=== PATIENT | male | born 1945 | race Caucasian/White ===

== ENCOUNTER 2017-03-01 09:55 | Inpatient (IN) | payer MEDICARE ==
[~2017-03-01] VITALS: Ht 182.9 cm; Wt 69.1 kg
[~2017-03-01 09:55] MED LIST: CLIN300C93 PO; IBUP-1222 PO; IBUP800T PO; METO25TA35 PO; MORP15TA3 PO; OXYC5TAB3 PO
[2017-03-01] MEDS ORDERED: FAMO-79 PO (10:49)
[2017-03-01] MEDS ORDERED: SULF1TAB24 PO (10:49)
[2017-03-01] MEDS ORDERED: PRED5TAB25 PO (10:49)
[2017-03-01] MEDS ORDERED: CEPH-367 PO (10:49)
[2017-03-01] MEDS ORDERED: DIPHENHYDRAMINE 50 MG/ML, 1ML ONE (11:20)
[2017-03-01] MEDS ORDERED: DIPHENHYDRAMINE 50 MG/ML, 1ML IVPush ONE (11:30)
[2017-03-01 11:40] LABS: BLOOD UREA NITROGEN 31 mg/dL (7-18)
[2017-03-01] MEDS ORDERED: methylPREDNISolone SOD SUCC 40 MG/ML ONE (12:21)
[2017-03-01] MEDS ORDERED: methylPREDNISolone SOD SUCC 40 MG/ML IV ONE (12:30)
[2017-03-01] MEDS ORDERED: SODIUM CHLORIDE 0.9% 1,000 ML IV SCH (12:54)
[2017-03-01] MEDS ORDERED: POLYETHYLENE GLYCOL 17 GM PACKET PO PRN (13:00)
[2017-03-01] MEDS ORDERED: ONDANSETRON 2MG/ML, 2ML IVPush PRN (13:00)
[2017-03-01] MEDS ORDERED: VANCOMYCIN PER PHARMACY MC PRN ×2 (13:00→14:00)
[2017-03-01] MEDS ORDERED: DOCUSATE 100 MG CAPSULE PO PRN (13:00)
[2017-03-01] MEDS ORDERED: ACETAMINOPHEN 325 MG TABLET PO PRN (13:00)
[2017-03-01] MEDS ORDERED: PHARMACOKINETIC MONITORING MC PRN (13:30)
[2017-03-01] MEDS ORDERED: PHARMACOKINETIC CONSULTATION MC ONE (13:30)
[2017-03-01] MEDS ORDERED: GADOBUTROL 7.5 MMOL/7.5 ML PFS ONE (14:15)
[2017-03-01] MEDS: NICOTINE 14MG/24 HR PATCH.TD24 TD SCH (15:32)
[2017-03-01] MEDS: VANCOMYCIN 1,500 MG in SODIUM CHLORIDE 0.9% 250 ML IV SCH (15:32)
[2017-03-01] MEDS: CETIRIZINE 10 MG TABLET PO SCH ×2 (16:33→21:14)
[2017-03-01 18:14] VITALS: BP 149/74
[2017-03-01] MEDS: METOPROLOL TARTRATE 25 MG TABLET PO SCH (18:17)
[2017-03-01 19:28] VITALS: BP 148/81
[2017-03-01] MEDS: FAMOTIDINE 20 MG TABLET PO SCH (21:10)
[2017-03-01] MEDS: DIPHENHYDRAMINE 25 MG CAPSULE PO PRN (21:14)
[2017-03-02 03:01] VITALS: BP 148/68
[2017-03-02 05:34] LABS: BLOOD UREA NITROGEN 26 mg/dL (7-18)
[2017-03-02] MEDS: METOPROLOL TARTRATE 25 MG TABLET PO SCH ×2 (06:20→19:13)
[2017-03-02 06:55] VITALS: BP 128/70
[2017-03-02] MEDS: VANCOMYCIN 1,500 MG in SODIUM CHLORIDE 0.9% 250 ML IV SCH (09:37)
[2017-03-02] MEDS: FAMOTIDINE 20 MG TABLET PO SCH ×2 (09:38→21:04)
[2017-03-02] MEDS: SENNA/DOCUSATE TABLET PO SCH (09:38)
[2017-03-02] MEDS: CETIRIZINE 10 MG TABLET PO SCH ×2 (09:38→21:04)
[2017-03-02] MEDS: HYDROcodone/APAP 5/325 TABLET PO PRN ×2 (10:55→19:15)
[2017-03-02 13:35] VITALS: BP 124/66
[2017-03-02] MEDS: NICOTINE 14MG/24 HR PATCH.TD24 TD SCH (16:21)
[2017-03-02 18:57] VITALS: BP 159/76
[2017-03-03 02:00] VITALS: BP 130/73
[2017-03-03] MEDS: VANCOMYCIN 1,500 MG in SODIUM CHLORIDE 0.9% 250 ML IV SCH ×2 (02:59→22:42)
[2017-03-03] MEDS: DIPHENHYDRAMINE 25 MG CAPSULE PO PRN ×2 (04:03→13:21)
[2017-03-03] MEDS: METOPROLOL TARTRATE 25 MG TABLET PO SCH ×2 (06:12→18:02)
[2017-03-03 07:08] VITALS: BP 107/59
[2017-03-03] MEDS: SENNA/DOCUSATE TABLET PO SCH (09:00)
[2017-03-03] MEDS: CETIRIZINE 10 MG TABLET PO SCH ×2 (09:18→22:42)
[2017-03-03] MEDS: FAMOTIDINE 20 MG TABLET PO SCH ×2 (09:18→22:42)
[2017-03-03 12:44] VITALS: BP 117/64
[2017-03-03] MEDS: NICOTINE 14MG/24 HR PATCH.TD24 TD SCH (13:00)
[2017-03-03] MEDS: METRONIDAZOLE PMX 500MG/100ML 100 ML IV SCH ×2 (13:21→21:11)
[2017-03-03 19:22] VITALS: BP 110/54
[2017-03-04 04:34] VITALS: BP 115/68
[2017-03-04] MEDS: METOPROLOL TARTRATE 25 MG TABLET PO SCH ×2 (05:12→20:20)
[2017-03-04] MEDS: METRONIDAZOLE PMX 500MG/100ML 100 ML IV SCH ×3 (05:12→22:19)
[2017-03-04 05:55] LABS: BLOOD UREA NITROGEN 26 mg/dL (7-18)
[2017-03-04 07:45] VITALS: BP 125/69
[2017-03-04] MEDS ORDERED: NS + 20MEQ KCL 1,000 ML IV SCH (08:30)
[2017-03-04] MEDS: FAMOTIDINE 20 MG TABLET PO SCH ×2 (08:56→20:20)
[2017-03-04] MEDS: SENNA/DOCUSATE TABLET PO SCH (08:57)
[2017-03-04] MEDS: CETIRIZINE 10 MG TABLET PO SCH ×2 (08:57→20:20)
[2017-03-04] MEDS: NICOTINE 14MG/24 HR PATCH.TD24 TD SCH (13:00)
[2017-03-04] MEDS ORDERED: LIDOCAINE 2%, 20ML ONE (14:50)
[2017-03-04] MEDS ORDERED: PROTAMINE SULFATE 10 MG/ML, 25ML ONE (14:53)
[2017-03-04] MEDS ORDERED: FENTANYL PF 100 MCG/2ML ONE (14:54)
[2017-03-04] MEDS ORDERED: MIDAZOLAM 1 MG/ML, 5ML ONE (14:54)
[2017-03-04] MEDS ORDERED: FLUMAZENIL 0.1 MG/1 ML, 5ML ONE (14:54)
[2017-03-04] MEDS ORDERED: HEPARIN 1,000 UNITS/ML, 10ML ONE (14:54)
[2017-03-04] MEDS ORDERED: NALOXONE 1 MG/ML, 2ML ONE (14:54)
[2017-03-04] MEDS ORDERED: NITROGLYCERIN 5 MG/ML, 10ML ONE (14:54)
[2017-03-04] MEDS ORDERED: CLOPIDOGREL 300 MG TABLET ONE (16:52)
[2017-03-04] MEDS: SODIUM CHLORIDE 0.9% 1,000 ML IV SCH (19:13)
[2017-03-04 20:00] VITALS: BP 147/81
[2017-03-04] MEDS: VANCOMYCIN 1,500 MG in SODIUM CHLORIDE 0.9% 250 ML IV SCH (20:20)
[2017-03-05 00:44] VITALS: BP 131/63
[2017-03-05 05:40] LABS: BLOOD UREA NITROGEN 24 mg/dL (7-18)
[2017-03-05] MEDS: METOPROLOL TARTRATE 25 MG TABLET PO SCH ×2 (06:15→18:41)
[2017-03-05] MEDS: METRONIDAZOLE PMX 500MG/100ML 100 ML IV SCH ×3 (06:15→23:14)
[2017-03-05 08:00] VITALS: BP 128/67
[2017-03-05] MEDS: CLOPIDOGREL 75 MG TABLET PO SCH (09:44)
[2017-03-05] MEDS: FAMOTIDINE 20 MG TABLET PO SCH ×2 (09:44→23:14)
[2017-03-05] MEDS: CETIRIZINE 10 MG TABLET PO SCH ×2 (09:44→21:00)
[2017-03-05] MEDS: SENNA/DOCUSATE TABLET PO SCH (09:44)
[2017-03-05] MEDS: SODIUM CHLORIDE 0.9% 1,000 ML IV SCH ×2 (09:46→20:00)
[2017-03-05 13:04] VITALS: BP 138/58
[2017-03-05] MEDS: NICOTINE 14MG/24 HR PATCH.TD24 TD SCH (13:11)
[2017-03-05] MEDS: morphine SULFATE 10 MG/ML, 1ML IVPush PRN (14:02)
[2017-03-05] MEDS: VANCOMYCIN 1,500 MG in SODIUM CHLORIDE 0.9% 250 ML IV SCH (15:24)
[2017-03-05] MEDS: TAMSULOSIN 0.4 MG CAP.ER.24H PO SCH (15:24)
[2017-03-05 18:43] VITALS: BP 132/67
[2017-03-05] MEDS: FINASTERIDE 5 MG TABLET PO SCH (23:14)
[2017-03-06 05:41] VITALS: BP 137/71
[2017-03-06] MEDS: SODIUM CHLORIDE 0.9% 1,000 ML IV SCH ×2 (06:08→17:46)
[2017-03-06] MEDS: METOPROLOL TARTRATE 25 MG TABLET PO SCH ×2 (06:08→17:45)
[2017-03-06 06:12] LABS: BLOOD UREA NITROGEN 16 mg/dL (7-18)
[2017-03-06] MEDS: FAMOTIDINE 20 MG TABLET PO SCH ×2 (08:37→21:35)
[2017-03-06] MEDS: CLOPIDOGREL 75 MG TABLET PO SCH (08:37)
[2017-03-06] MEDS: METRONIDAZOLE PMX 500MG/100ML 100 ML IV SCH ×2 (08:37→17:46)
[2017-03-06] MEDS: TAMSULOSIN 0.4 MG CAP.ER.24H PO SCH (08:37)
[2017-03-06] MEDS: FINASTERIDE 5 MG TABLET PO SCH (08:37)
[2017-03-06] MEDS: CETIRIZINE 10 MG TABLET PO SCH (08:37)
[2017-03-06] MEDS: SENNA/DOCUSATE TABLET PO SCH (08:38)
[2017-03-06] MEDS: VANCOMYCIN 1,500 MG in SODIUM CHLORIDE 0.9% 250 ML IV SCH (11:11)
[2017-03-06] MEDS: NICOTINE 14MG/24 HR PATCH.TD24 TD SCH (13:00)
[2017-03-06] MEDS ORDERED: LINE600T37 PO (13:38)
[2017-03-06] MEDS ORDERED: FINA5TAB4 PO (13:38)
[2017-03-06] MEDS ORDERED: METR500T PO (13:38)
[2017-03-06] MEDS ORDERED: TAMS-11 PO (13:38)
[2017-03-06] MEDS ORDERED: CLOP75TA PO (13:38)
[2017-03-06] MEDS ORDERED: TRAM50TA2 PO (13:40)
[2017-03-06] MEDS: morphine SULFATE 10 MG/ML, 1ML IVPush PRN (14:23)
[2017-03-06 17:43] VITALS: BP 136/66
[2017-03-06 21:30] VITALS: BP 159/85
[2017-03-07] MEDS: METRONIDAZOLE PMX 500MG/100ML 100 ML IV SCH ×2 (00:37→08:05)
[2017-03-07 01:25] VITALS: BP 143/75
[2017-03-07] MEDS: VANCOMYCIN 1,500 MG in SODIUM CHLORIDE 0.9% 250 ML IV SCH (04:22)
[2017-03-07] MEDS: METOPROLOL TARTRATE 25 MG TABLET PO SCH (06:11)
[2017-03-07] MEDS: FINASTERIDE 5 MG TABLET PO SCH (08:04)
[2017-03-07] MEDS: CETIRIZINE 10 MG TABLET PO SCH (08:04)
[2017-03-07] MEDS: CLOPIDOGREL 75 MG TABLET PO SCH (08:04)
[2017-03-07] MEDS: FAMOTIDINE 20 MG TABLET PO SCH (08:04)
[2017-03-07] MEDS: TAMSULOSIN 0.4 MG CAP.ER.24H PO SCH (08:04)
[2017-03-07] MEDS: SENNA/DOCUSATE TABLET PO SCH (08:04)
[2017-03-07 08:13] VITALS: BP 146/77
[2017-03-07] MEDS ORDERED: SODIUM CHLORIDE NASAL SPRAY 45ML BOTTLE NAS PRN (09:00)
[2017-03-07] MEDS: SODIUM CHLORIDE 0.9% 1,000 ML IV SCH (10:00)
[2017-03-07] MEDS: NICOTINE 14MG/24 HR PATCH.TD24 TD SCH (11:33)
[2017-03-07] MEDS ORDERED: DOXY100T PO (11:44)
[2017-03-07] MEDS ORDERED: DOXYCYCLINE 100MG TABLET PO ONE (12:00)
== END 2017-03-07 14:26 | disposition home or self-care (01) | DRG 253 ==
LOC: ED 11:56 → SUATTDRO 12:37 → EDIP 12:54 → 3NE 14:33
PROVIDERS: ADMIT Family Medicine; ATTEND Family Medicine
PROC: B41GYZZ Fluoroscopy of Left Lower Extremity Arteries using Other Contrast (ICD-10-PCS; principal; 2017-03-01)
PROC: 047J3DZ Dilation of Left External Iliac Artery with Intraluminal Device, Percutaneous Approach (ICD-10-PCS; 2017-03-01)
PROC: 047U3ZZ Dilation of Left Peroneal Artery, Percutaneous Approach (ICD-10-PCS; 2017-03-01)
PROC: B41FYZZ Fluoroscopy of Right Lower Extremity Arteries using Other Contrast (ICD-10-PCS; 2017-03-01)
DX: I70.243 Atherosclerosis of native arteries of left leg with ulceration of ankle (principal); E44.0 Moderate protein-calorie malnutrition; L97.329 Non-pressure chronic ulcer of left ankle with unspecified severity; L27.0 Generalized skin eruption due to drugs and medicaments taken internally; S91.002A Unspecified open wound, left ankle, initial encounter; D47.3 Essential (hemorrhagic) thrombocythemia; D64.9 Anemia, unspecified; Z16.24 Resistance to multiple antibiotics; T36.95XA Adverse effect of unspecified systemic antibiotic, initial encounter; Y92.89 Other specified places as the place of occurrence of the external cause; F17.200 Nicotine dependence, unspecified, uncomplicated; I10 Essential (primary) hypertension; R33.9 Retention of urine, unspecified; Z82.3 Family history of stroke; Z88.2 Allergy status to sulfonamides; Z88.1 Allergy status to other antibiotic agents; Z86.14 Personal history of Methicillin resistant Staphylococcus aureus infection; Z68.20 Body mass index [BMI] 20.0-20.9, adult
CPT/HCPCS: 36415; 37221; 37228; 71020; 75625; 75630; 75716; 80048; 80202; 81001; 81003; 82040; 85025; 85651; 86141; 87040; 87070; 87086; 87106; 87205; 93005; 93922; 93925; 96374; 96375; 99156; 99157; A9585; C1725; J1644; J2250; J2720; J3010; J3370; J3480; J3490; C1751; C1769; C1876; C1894; J1200; J2270; J2310; J2920; J7030; J7050; Q0163

== ENCOUNTER 2017-05-04 11:36 | Emergency (ER) | payer MEDICARE ==
[~2017-05-04] VITALS: Ht 182.9 cm; Wt 66.8 kg
[~2017-05-04 11:36] MED LIST changes: +CEPH-367 PO; +CLIN300C8 PO; -CLIN300C93 PO; +CLOP75TA PO; +DOXY100T PO; +FAMO-79 PO; +FINA5TAB4 PO; +IBUP-1223 PO; -IBUP800T PO; +LINE600T37 PO; +METR500T PO; +PRED5TAB25 PO; +SULF1TAB24 PO; +TAMS-11 PO; +TRAM50TA2 PO
[2017-05-04] MEDS ORDERED: HYDROcodone/APAP 5/325 TABLET ONE (14:25)
[2017-05-04] MEDS ORDERED: HYDROcodone/APAP 5/325 TABLET PO ONE (14:30)
[2017-05-04] MEDS ORDERED: LIDOCAINE GEL 2%, 5ML ONE ×2 (15:18→16:02)
[2017-05-04] MEDS ORDERED: ONDANSETRON ODT 4 MG PO ONE (16:30)
[2017-05-04] MEDS ORDERED: HYDROmorphone 1 MG/ML, 1ML IM ONE (16:30)
[2017-05-04] MEDS ORDERED: ONDANSETRON ODT 4 MG ONE (16:31)
[2017-05-04] MEDS ORDERED: HYDROmorphone 1 MG/ML, 1ML ONE (16:31)
[2017-05-04] MEDS ORDERED: FENTANYL PF 100 MCG/2ML ONE (17:17)
[2017-05-04] MEDS ORDERED: LORazepam 2 MG/ML, 1ML ONE (17:18)
[2017-05-04] MEDS ORDERED: HYDROmorphone 1 MG/ML, 1ML IV ONE (17:30)
[2017-05-04] MEDS ORDERED: LORazepam 2 MG/ML, 1ML IVPush ONE ×2 (17:30→18:00)
[2017-05-04] MEDS ORDERED: FENTANYL PF 100 MCG/2ML IVPush ONE (17:41)
[2017-05-04 18:27] VITALS: BP 148/67
== END 2017-05-04 18:59 | disposition home or self-care (01) ==
LOC: ED 13:07
DX: N30.01 Acute cystitis with hematuria (principal); R33.9 Retention of urine, unspecified; N40.0 Benign prostatic hyperplasia without lower urinary tract symptoms; I10 Essential (primary) hypertension; F17.210 Nicotine dependence, cigarettes, uncomplicated
CPT/HCPCS: 51702; 81001; 87077; 87086; 96374; 96375; 99284; J2060; J3010; 87186

== ENCOUNTER 2017-05-19 15:31 | Emergency (ER) | payer SELFPAY ==
[~2017-05-19] VITALS: Ht 182.9 cm; Wt 69.4 kg
[2017-05-19] MEDS ORDERED: PHENAZOPYRIDINE 200 MG TABLET PO ONE (17:00)
[2017-05-19] MEDS ORDERED: PHENAZOPYRIDINE 200 MG TABLET ONE (17:27)
[2017-05-19] MEDS ORDERED: OPIUM/BELLADONNA SUPP.RECT 16.2-60 MG PR ONE (17:59)
[2017-05-19] MEDS ORDERED: HYDROmorphone 1 MG/ML, 1ML ONE ×2 (18:23→20:48)
[2017-05-19] MEDS ORDERED: ONDANSETRON ODT 4 MG ONE (18:28)
[2017-05-19] MEDS ORDERED: HYDROmorphone 1 MG/ML, 1ML IM ONE (18:30)
[2017-05-19] MEDS ORDERED: ONDANSETRON ODT 4 MG PO ONE (19:00)
[2017-05-19] MEDS ORDERED: ONDANSETRON 2MG/ML, 2ML ONE (20:48)
[2017-05-19] MEDS ORDERED: SODIUM CHLORIDE 0.9% 1,000ML IVBOLUS ONE (21:00)
[2017-05-19] MEDS ORDERED: ONDANSETRON 2MG/ML, 2ML IVPush ONE (21:00)
[2017-05-19] MEDS ORDERED: SODIUM CHLORIDE FLUSH 10ML SYR IVF ONE (21:00)
[2017-05-19] MEDS ORDERED: HYDROmorphone 1 MG/ML, 1ML IVPush PRN (21:00)
[2017-05-19] MEDS ORDERED: CEFDINIR 300 MG CAPSULE PO SCH (21:00)
[2017-05-19 21:24] LABS: BLOOD UREA NITROGEN 32 mg/dL (7-18)
[2017-05-19 21:25] LABS: HEMATOCRIT 48.1 % (39.2-51.8); HEMOGLOBIN 16.3 g/dL (13.7-18.0); WHITE BLOOD COUNT 28.4 x10^3/uL (3.4-10)
[2017-05-19] MEDS ORDERED: FLUMAZENIL 0.1 MG/1 ML, 5ML ONE (21:40)
[2017-05-19] MEDS ORDERED: MIDAZOLAM 1 MG/ML, 5ML ONE (21:40)
[2017-05-19] MEDS ORDERED: FENTANYL PF 100 MCG/2ML ONE (21:40)
[2017-05-19] MEDS ORDERED: NALOXONE 1 MG/ML, 2ML ONE (21:40)
[2017-05-19] MEDS ORDERED: LIDOCAINE 1%, 20ML ONE (21:42)
[2017-05-19] MEDS ORDERED: VISIPAQUE 270 MG/ML, 50ML BOTTLE ONE (22:01)
[2017-05-20 03:09] VITALS: BP 120/70
== END 2017-05-20 03:10 | disposition home or self-care (01) ==
LOC: ED 21:16
DX: N30.90 Cystitis, unspecified without hematuria (principal); I10 Essential (primary) hypertension
CPT/HCPCS: 36415; 51703; 75989; 76937; 80048; 81001; 82040; 83605; 85025; 87040; 87077; 87086; 87186; 96361; 96372; 96374; 96375; 99156; 99157; 99285; C1725; C1769; J1170; J2250; J2405; J3010; J3490; J7030; Q0162; Q9966; 51701; J2310; P9612

== ENCOUNTER 2017-06-04 02:02 | Emergency (ER) | payer SELFPAY ==
[~2017-06-04] VITALS: Ht 182.9 cm; Wt 68.3 kg
[2017-06-04] MEDS ORDERED: HYDROmorphone 1 MG/ML, 1ML ONE (02:44)
[2017-06-04] MEDS ORDERED: HYDROmorphone 1 MG/ML, 1ML IM ONE (03:00)
[2017-06-04 05:11] VITALS: BP 128/72
== END 2017-06-04 05:20 | disposition home or self-care (01) ==
LOC: ED 05:11
DX: N30.91 Cystitis, unspecified with hematuria (principal); I10 Essential (primary) hypertension; F17.200 Nicotine dependence, unspecified, uncomplicated; I49.1 Atrial premature depolarization
CPT/HCPCS: 81001; 87077; 87086; 87106; 87186; 93005; 96372; 99285; J1170

== ENCOUNTER 2017-06-16 03:29 | Emergency (ER) | payer SELFPAY ==
[~2017-06-16] VITALS: Ht 182.9 cm; Wt 67.9 kg
[2017-06-16 03:31] VITALS: BP 162/109
== END 2017-06-16 05:05 | disposition home or self-care (01) ==
LOC: ED 04:01
DX: T83.091A Other mechanical complication of indwelling urethral catheter, initial encounter (principal); N30.90 Cystitis, unspecified without hematuria; F17.200 Nicotine dependence, unspecified, uncomplicated; I10 Essential (primary) hypertension; X58.XXXA Exposure to other specified factors, initial encounter; Y93.89 Activity, other specified; Y92.89 Other specified places as the place of occurrence of the external cause; Y99.8 Other external cause status
CPT/HCPCS: 51702; 81001; 87077; 87086; 87106; 87186

== ENCOUNTER → 2017-08-13 | Outpatient (CLI) | payer MEDICARE, MEDICAID ==
[~2017-08-13] MED LIST changes: +Garlic; +Green Tea; +HAWTHORN BERRIES; +LEVO50TA5 PO; +MULT-224 PO; +Magnesium; +Resveratrol; +TAMS0.4C2 PO; +Turmeric; +Vitamin B12; +Vitamin C; +Vitamin E; +fish oil
[2017-08-13 12:46] LABS: ASPARTATE AMINO TRANSFERASE 20 U/L (15-37); BLOOD UREA NITROGEN 26 mg/dL (7-18)
== END | disposition home or self-care (01) ==
LOC: STAR 11:24
PROVIDERS: ATTEND Urology
DX: Z01.818 Encounter for other preprocedural examination (principal); R33.9 Retention of urine, unspecified; R94.31 Abnormal electrocardiogram [ECG] [EKG]
CPT/HCPCS: 36415; 80053; 93005

== ENCOUNTER → 2017-08-19 | Outpatient (CLI) | payer MEDICARE, MEDICAID ==
[~2017-08-19] MED LIST changes: +REGADENOSON 0.4 MG/5 ML SYRINGE ONE
== END | disposition home or self-care (01) ==
LOC: CFH 10:40
PROVIDERS: ATTEND Internal Medicine Cardiovascular Disease
DX: Z01.818 Encounter for other preprocedural examination (principal); I51.7 Cardiomegaly; I70.25 Atherosclerosis of native arteries of other extremities with ulceration; E78.5 Hyperlipidemia, unspecified; Z72.0 Tobacco use
CPT/HCPCS: 78452; 93017; 93306; A9502; J2785

== ENCOUNTER 2017-11-11 18:15 | Emergency (ER) | payer MEDICARE, MEDICAID ==
[~2017-11-11] VITALS: Ht 182.9 cm; Wt 72.0 kg
[~2017-11-11 18:15] MED LIST changes: -REGADENOSON 0.4 MG/5 ML SYRINGE ONE
[2017-11-11 18:17] VITALS: BP 150/81
[2017-11-11] MEDS ORDERED: VISIPAQUE 270 MG/ML, 50ML BOTTLE ONE (20:00)
[2017-11-11] MEDS ORDERED: LIDOCAINE 1%, 20ML ONE (20:23)
[2017-11-11 21:31] LABS: MICROSCOPIC AUTO
[2017-11-11 21:35] LABS: CULTURE INDICATED? YES
== END 2017-11-11 22:07 | disposition home or self-care (01) ==
LOC: ED 21:31
DX: N30.91 Cystitis, unspecified with hematuria (principal)
CPT/HCPCS: 51102; 51702; 76000; 81001; 87077; 87086; 87186; 99285; C1725; C1769; J3490; Q9966

== ENCOUNTER → 2017-12-15 | Outpatient (CLI) | payer MEDICARE, MEDICAID ==
[~2017-12-15] MED LIST changes: +ATOR20TA9 PO; +CARV3.1212 PO; +ERGO500017 PO; +LISI2.5T PO
[2017-12-15 13:45] LABS: ALBUMIN 3.7 g/dL (3.4-5.0); ANION GAP 8 mmol/L (5-15); CALCIUM 8.8 mg/dL (8.5-10.1); CHLORIDE 107 mmol/L (98-107)
[2017-12-15 13:49] LABS: ALANINE AMINOTRANSFERASE 16 U/L (12-78); ALKALINE PHOSPHATASE 68 U/L (45-117); BILIRUBIN,TOTAL 0.7 mg/dL (0.2-1.0); CREATININE 1.17 mg/dL (0.7-1.3)
== END | disposition home or self-care (01) ==
LOC: STAR 12:26
PROVIDERS: ATTEND Urology
DX: Z01.818 Encounter for other preprocedural examination (principal); R33.9 Retention of urine, unspecified; R94.31 Abnormal electrocardiogram [ECG] [EKG]
CPT/HCPCS: 36415; 80053; 93005